=== PATIENT | male | born 1955 | race Caucasian/White ===

== ENCOUNTER 2020-02-25 17:47 | Emergency (ER) | payer MEDICARE, OTHER ==
[~2020-02-25 17:47] MED LIST: COREG 12.5MG12.5 MG PO; FLOMAX 0.4 MG0.4 MG PO; FORTAMET1000 MG PO; IPRAT-ALBUT 0.5-3 ML INH; LIPITOR80 MG PO; LOSARTAN POTAS100 MG PO; LYRICA300 MG PO; NAPROXEN500 MG PO; NITROMIST4.1 GM TL; NORVASC5 MG PO; PERCOCET 10-321 EACH PO; PLAVIX 75 MG TA75 MG PO; RANEXA1000 MG PO
[2020-02-25 18:32] LABS: HEMOGLOBIN 14.6 gm/dl (14.0-17.5); RED BLOOD COUNT 5.21 M/UL (4.20-5.50); WHITE BLOOD COUNT 15.3 K/UL (4.5-11.0)
[2020-02-25 18:41] LABS: BUN/CREATININE RATIO 17 (0-10)
== END 2020-02-25 19:37 | disposition home or self-care (01) ==
LOC: ER1 17:47
PROVIDERS: Emergency Medicine
DX: Z53.8 Procedure and treatment not carried out for other reasons (principal)
CPT/HCPCS: 71045; 80053; 82550; 82553; 83690; 83735; 83874; 83880; 84100; 84484; 85025; 85610; 85730; 93005

== ENCOUNTER 2020-02-27 12:55 | Inpatient (IN) | payer MEDICARE, OTHER ==
[~2020-02-27] VITALS: Ht 188 cm; Wt 130.2 kg
[2020-02-27] MEDS ORDERED: ISOSORBIDE MONO30 MG PO (13:19)
[2020-02-27 13:21] LABS: HEMOGLOBIN 13.8 gm/dl (14.0-17.5); RED BLOOD COUNT 4.97 M/UL (4.20-5.50); WHITE BLOOD COUNT 12.8 K/UL (4.5-11.0)
[2020-02-27 13:44] LABS: BUN/CREATININE RATIO 18 (0-10)
[2020-02-27] MEDS ORDERED: ANORO ELLIPTA1 EACH INH (14:43)
[2020-02-27] MEDS ORDERED: HYDRALAZINE HCL50 MG PO (14:44)
[2020-02-27] MEDS ORDERED: CYMBALTA60 MG PO (14:44)
[2020-02-27] MEDS ORDERED: TYLENOL325 MG PO (14:45)
[2020-02-27] MEDS ORDERED: PROAIR HFA8.5 GM INH (14:46)
[2020-02-27] MEDS ORDERED: HYDROCODON-ACE1 EAC6 PO (14:46)
[2020-02-27] MEDS ORDERED: ELAVIL 25 MG TA25 MG PO (14:47)
[2020-02-28 03:22] LABS: HEMOGLOBIN 11.9 gm/dl (14.0-17.5); WHITE BLOOD COUNT 9.9 K/UL (4.5-11.0)
[2020-02-28 03:24] LABS: RED BLOOD COUNT 4.32 M/UL (4.20-5.50)
[2020-02-29 03:17] LABS: HEMOGLOBIN 10.9 gm/dl (14.0-17.5); RED BLOOD COUNT 3.97 M/UL (4.20-5.50); WHITE BLOOD COUNT 7.8 K/UL (4.5-11.0)
[2020-02-29 03:49] LABS: BUN/CREATININE RATIO 23 (0-10)
[2020-02-29] MEDS ORDERED: ASPIRIN EC81 MG PO (09:37)
== END 2020-02-29 15:27 | disposition home or self-care (01) | DRG 247 ==
LOC: ER1 12:55 → CDU 14:14 → PROG CARE 14:14
PROVIDERS: Internal Medicine Interventional Cardiology; Nurse Practitioner; Physician Assistant; ADMIT Family Medicine
PROC: 027034Z Dilation of Coronary Artery, One Artery with Drug-eluting Intraluminal Device, Percutaneous Approach (ICD-10-PCS; principal; 2020-02-28)
PROC: 4A023N7 Measurement of Cardiac Sampling and Pressure, Left Heart, Percutaneous Approach (ICD-10-PCS; 2020-02-28)
PROC: B2111ZZ Fluoroscopy of Multiple Coronary Arteries using Low Osmolar Contrast (ICD-10-PCS; 2020-02-28)
PROC: B2151ZZ Fluoroscopy of Left Heart using Low Osmolar Contrast (ICD-10-PCS; 2020-02-28)
PROC: 4A0335C Measurement of Arterial Flow, Coronary, Percutaneous Approach (ICD-10-PCS; 2020-02-28)
PROC: B24BZZZ Ultrasonography of Heart with Aorta (ICD-10-PCS; 2020-02-28)
DX: I21.4 Non-ST elevation (NSTEMI) myocardial infarction (principal); N17.9 Acute kidney failure, unspecified; I25.10 Atherosclerotic heart disease of native coronary artery without angina pectoris; Z20.822 Contact with and (suspected) exposure to COVID-19; F17.210 Nicotine dependence, cigarettes, uncomplicated; E78.5 Hyperlipidemia, unspecified; J44.9 Chronic obstructive pulmonary disease, unspecified; D64.9 Anemia, unspecified; N40.0 Benign prostatic hyperplasia without lower urinary tract symptoms; E66.01 Morbid (severe) obesity due to excess calories; E11.9 Type 2 diabetes mellitus without complications; I95.9 Hypotension, unspecified; Z88.6 Allergy status to analgesic agent; Z91.041 Radiographic dye allergy status; Z82.49 Family history of ischemic heart disease and other diseases of the circulatory system; Z83.3 Family history of diabetes mellitus; Z68.36 Body mass index [BMI] 36.0-36.9, adult; Z95.5 Presence of coronary angioplasty implant and graft; Z80.9 Family history of malignant neoplasm, unspecified
CPT/HCPCS: ECHO; 36415; 71045; 80048; 80053; 80061; 82550; 82553; 82962; 83036; 83690; 83735; 83874; 83880; 84100; 84484; 85025; 85027; 85347; 85610; 85730; 90471; 93005; 93306; 94640; 94664; 94760; 96372; 96374; 96375; 99152; 99153; 99285; C1725; C1760; C1769; C1874; C1887; C9600; J1644; J2250; J3010; J7040; Q9967; U0002

== ENCOUNTER → 2020-05-13 | Outpatient (CLI) | payer MEDICARE, OTHER ==
[~2020-05-13] MED LIST changes: +ANORO ELLIPTA1 EACH INH; +ASPIRIN EC81 MG PO; +CLONIDINE HCL0.2 MG PO; +COREG 25MG TAB25 MG PO; +CYMBALTA60 MG PO; +ELAVIL 25 MG TA25 MG PO; +FAMOTIDINE40 MG PO; +FUROSEMIDE20 MG PO; +HYDRALAZINE HCL50 MG PO; +HYDROCODON-ACE1 EAC6 PO; +ISOSORBIDE MONO30 MG PO; +LOPRESSOR50 MG PO; +NITROGLYCERIN4.9 GM TL; +PROAIR HFA8.5 GM INH; +PROMETHAZINE HC25 M1 PO; +TRAZODONE HCL100 MG PO; +TYLENOL325 MG PO; +VITAMIN B-121000 MC1 PO; +VITAMIN D21250 MCG PO; +ZYLOPRIM 300 M300 MG PO
== END ==
LOC: HEART 5 14:58
DX: J44.9 Chronic obstructive pulmonary disease, unspecified (principal)
CPT/HCPCS: 94010

== ENCOUNTER 2020-07-24 07:22 | Observation (INO) | payer MEDICARE, OTHER ==
[~2020-07-24] VITALS: Ht 188 cm; Wt 153.3 kg
[~2020-07-24 07:22] MED LIST changes: -CLONIDINE HCL0.2 MG PO; -COREG 25MG TAB25 MG PO; -FAMOTIDINE40 MG PO; -FUROSEMIDE20 MG PO; -LOPRESSOR50 MG PO; -NITROGLYCERIN4.9 GM TL; -PROMETHAZINE HC25 M1 PO; -TRAZODONE HCL100 MG PO; -VITAMIN B-121000 MC1 PO; -VITAMIN D21250 MCG PO; -ZYLOPRIM 300 M300 MG PO
[2020-07-24 07:46] LABS: RED BLOOD COUNT 4.06 M/UL (4.20-5.50); WHITE BLOOD COUNT 7.4 K/UL (4.5-11.0)
[2020-07-24] MEDS ORDERED: COREG 25MG TAB25 MG PO (10:59)
[2020-07-24] MEDS ORDERED: FAMOTIDINE40 MG PO ×2 (10:59→13:23)
[2020-07-24] MEDS ORDERED: CLONIDINE HCL0.2 MG PO ×2 (10:59→14:44)
[2020-07-24] MEDS ORDERED: VITAMIN B-121000 MC1 PO (11:00)
[2020-07-24] MEDS ORDERED: VITAMIN D21250 MCG PO (11:01)
[2020-07-24] MEDS ORDERED: CYMBALTA60 MG PO (12:05)
[2020-07-24] MEDS ORDERED: PROMETHAZINE HC25 M1 PO (12:06)
[2020-07-24] MEDS ORDERED: ZYLOPRIM 300 M300 MG PO (13:24)
[2020-07-25 05:29] LABS: HEMOGLOBIN 11.6 gm/dl (14.0-17.5); RED BLOOD COUNT 4.04 M/UL (4.20-5.50); WHITE BLOOD COUNT 6.6 K/UL (4.5-11.0)
[2020-07-26 10:24] LABS: HEMOGLOBIN 11.4 gm/dl (14.0-17.5); RED BLOOD COUNT 3.97 M/UL (4.20-5.50); WHITE BLOOD COUNT 5.7 K/UL (4.5-11.0)
== END 2020-07-26 18:17 | disposition home or self-care (01) ==
LOC: ER1 07:22 → CDU 09:46 → MED SURG 4 09:46
PROVIDERS: Physician Assistant Medical; ADMIT Family Medicine
DX: I25.118 Atherosclerotic heart disease of native coronary artery with other forms of angina pectoris (principal); I10 Essential (primary) hypertension; I25.2 Old myocardial infarction; E78.5 Hyperlipidemia, unspecified; E11.9 Type 2 diabetes mellitus without complications; J44.9 Chronic obstructive pulmonary disease, unspecified; N40.0 Benign prostatic hyperplasia without lower urinary tract symptoms; F17.210 Nicotine dependence, cigarettes, uncomplicated; E66.01 Morbid (severe) obesity due to excess calories; Z68.41 Body mass index [BMI] 40.0-44.9, adult; Z20.822 Contact with and (suspected) exposure to COVID-19; Z95.5 Presence of coronary angioplasty implant and graft; Z79.02 Long term (current) use of antithrombotics/antiplatelets; Z79.82 Long term (current) use of aspirin; Z79.84 Long term (current) use of oral hypoglycemic drugs; Z79.899 Other long term (current) drug therapy; Z79.1 Long term (current) use of non-steroidal anti-inflammatories (NSAID); Z88.6 Allergy status to analgesic agent; Z91.041 Radiographic dye allergy status
CPT/HCPCS: 36415; 71045; 80048; 80053; 80061; 82550; 82553; 82962; 83036; 83735; 83874; 83880; 84484; 85025; 85027; 85379; 93005; 93970; 94664; 94760; 99285; G0378; U0002

== ENCOUNTER 2020-09-07 15:09 | Inpatient (IN) | payer MEDICARE, OTHER ==
[~2020-09-07] VITALS: Ht 188 cm; Wt 144.5 kg
[~2020-09-07 15:09] MED LIST changes: +CLONIDINE HCL0.2 MG PO; +COREG 25MG TAB25 MG PO; +FAMOTIDINE40 MG PO; +PROMETHAZINE HC25 M1 PO; +VITAMIN B-121000 MC1 PO; +VITAMIN D21250 MCG PO; +ZYLOPRIM 300 M300 MG PO
[2020-09-07 15:50] LABS: HEMOGLOBIN 10.1 gm/dl (14.0-17.5); RED BLOOD COUNT 3.85 M/UL (4.20-5.50); WHITE BLOOD COUNT 7.6 K/UL (4.5-11.0)
[2020-09-07 16:20] LABS: BUN/CREATININE RATIO 11 (0-10)
[2020-09-07 21:46] LABS: LDH, BODY FLUID 226 U/L; TOTAL PROTEIN, BODY FLUID 5.4 gm/dL
[2020-09-08 06:18] LABS: HEMOGLOBIN 9.2 gm/dl (14.0-17.5); RED BLOOD COUNT 3.55 M/UL (4.20-5.50)
[2020-09-08 06:26] LABS: WHITE BLOOD COUNT 10.1 K/UL (4.5-11.0)
[2020-09-08] MEDS ORDERED: HYDROCODON-ACE1 EAC6 PO (12:14)
[2020-09-08] MEDS ORDERED: NITROGLYCERIN4.9 GM TL (12:16)
[2020-09-08] MEDS ORDERED: TRAZODONE HCL100 MG PO (12:18)
[2020-09-08] MEDS ORDERED: LOPRESSOR50 MG PO (12:21)
[2020-09-09 02:29] LABS: HEMOGLOBIN 9.6 gm/dl (14.0-17.5); RED BLOOD COUNT 3.71 M/UL (4.20-5.50); WHITE BLOOD COUNT 7.7 K/UL (4.5-11.0)
[2020-09-10 04:17] LABS: HEMOGLOBIN 9.2 gm/dl (14.0-17.5); RED BLOOD COUNT 3.57 M/UL (4.20-5.50); WHITE BLOOD COUNT 7.3 K/UL (4.5-11.0)
[2020-09-10] MEDS ORDERED: FUROSEMIDE20 MG PO (09:56)
--- NOTE | 2020-09-10 11:09 | NUR ---
PATIENT O2 SATURATION 87% ON ROOM AIR.
== END 2020-09-10 15:54 | disposition home or self-care (01) | DRG 291 ==
LOC: ER1 15:09 → PROG CARE 16:48 → CDU 16:48 → PROG CARE 09-08 08:59 → M/S 09-09 20:40
PROVIDERS: Emergency Medicine; Internal Medicine; ADMIT Internal Medicine
PROC: B24BZZ4 Ultrasonography of Heart with Aorta, Transesophageal (ICD-10-PCS; principal; 2020-09-07)
PROC: 0W9B3ZZ Drainage of Left Pleural Cavity, Percutaneous Approach (ICD-10-PCS; 2020-09-07)
DX: I11.0 Hypertensive heart disease with heart failure (principal); J96.21 Acute and chronic respiratory failure with hypoxia; J90 Pleural effusion, not elsewhere classified; N17.9 Acute kidney failure, unspecified; I16.1 Hypertensive emergency; I25.810 Atherosclerosis of coronary artery bypass graft(s) without angina pectoris; E66.2 Morbid (severe) obesity with alveolar hypoventilation; Z68.41 Body mass index [BMI] 40.0-44.9, adult; Z20.822 Contact with and (suspected) exposure to COVID-19; D64.9 Anemia, unspecified; E11.9 Type 2 diabetes mellitus without complications; E78.5 Hyperlipidemia, unspecified; N40.0 Benign prostatic hyperplasia without lower urinary tract symptoms; I50.30 Unspecified diastolic (congestive) heart failure; I07.1 Rheumatic tricuspid insufficiency; J44.9 Chronic obstructive pulmonary disease, unspecified; Z88.8 Allergy status to other drugs, medicaments and biological substances; Z91.041 Radiographic dye allergy status; Z82.49 Family history of ischemic heart disease and other diseases of the circulatory system; Z83.3 Family history of diabetes mellitus; Z80.9 Family history of malignant neoplasm, unspecified; Z87.891 Personal history of nicotine dependence; Z79.01 Long term (current) use of anticoagulants; Z79.82 Long term (current) use of aspirin
CPT/HCPCS: ECHO; 36415; 71045; 71046; 71250; 80048; 80053; 82550; 82553; 83540; 83550; 83615; 83735; 83874; 83880; 84157; 84484; 85025; 85027; 85610; 85730; 86140; 87070; 87205; 89051; 93005; 93306; 94640; 94664; 94760; 99285; J1650; J1940; P9047; U0002